=== PATIENT | female | born 1965 | race Caucasian/White ===

== ENCOUNTER 2016-11-24 09:21 | Observation (INO) ==
[2016-11-24] MEDS ORDERED: 0.9 % Sodium Chloride 1,000 ML IVC ONE (09:35)
[2016-11-24] MEDS ORDERED: Pantoprazole 40 MG VIAL IVP ONE (09:35)
[2016-11-24] MEDS ORDERED: Ondansetron 4 MG/2 ML VIAL IVP ONE (09:35)
--- NOTE | 2016-11-24 09:38 | Emergency Department Note ---
Disposition Clinical Impression: Abdominal pain Qualifiers: Abdominal location: epigastric Qualified Code(s): R10.13 - Epigastric pain Nausea & vomiting Qualifiers: Vomiting type: unspecified Vomiting Intractability: unspecified Qualified Code( s): R11.2 - Nausea with vomiting, unspecified Chest pain Qualifiers: Chest pain type: unspecified Qualified Code(s): R07.9 - Chest pain, unspecified Disposition: Admitted As Inpatient Condition: Good Time of Disposition: 11:59 Abdominal Pain HPI - General Chief Complaint: ED Abdominal Pain Stated Complaint: Epigastric pain,vomiting Time Seen by Provider: 11/24/16 09:32 Source: patient Mode of arrival: ambulatory Limitations: no limitations Nursing Notes Reviewed: Yes Vital Signs Reviewed: Yes - History of Present Illness HPI Narrative: 51-year-old comes in with burning epigastric pain. Patient states that it is her reflux. She was on a PPI and that was stopped by her and her symptoms have returned. She states the symptoms are exactly that of her reflux. Patient states she cannot eat or drink anything. Pt Subjective Complaint: abdominal pain Onset (ago): day(s) Consistency: constant Location: epigastric Pain Scale: 8 Quality: burning Radiation: none Migration to: no migration Improves with: nothing Worsens with: nothing Associated symptoms: Reports: nausea, vomiting Treatments prior to arrival: none - Related Data Home Medications Medication Instructions Recorded Confirmed No Known Home Drugs 11/24/16 11/24/16 Allergies Allergy/AdvReac Type Severity Reaction Status Date / Time pregabalin [From Lyrica] Allergy Anaphylaxis Verified 11/24/16 09:24 All systems ED: reviewed and negative except as stated. Constitutional: Denies: fever, chills, weakness, weight change Eyes: Denies: eye pain, eye discharge, vision change ENT ED: Denies: ear pain, throat pain, dental pain, hearing loss, epistaxis, congestion, dysphagia Cardiovascular: Denies: chest pain, palpitations, dyspnea on exertion, edema, syncope Respiratory: Denies: cough, dyspnea, wheezes, hemoptysis, stridor Gastrointestinal: Reports: abdominal pain. Denies: nausea, vomiting, diarrhea, constipation, hematemesis, melena, hematochezia Genitourinary: Denies: dysuria, frequency, hematuria, discharge Musculoskeletal: Denies: back pain, neck pain, arthralgia, myalgia Integumentary: Denies: rash, abrasion, lesions Neurological: Denies: headache, weakness, numbness, paresthesias, confusion, abnormal gait, vertigo Psychiatric: Denies: anxiety, depression, suicidal thoughts, homicidal thoughts , auditory hallucinations, visual hallucinations Endocrine: Denies: fatigue Hematological/Lymphatic: Denies: easy bleeding, easy bruising Allergic/Immunologic: Denies: facial swelling, urticaria Abdominal Pain PMH - Past Medical History Medical history: Reports: cancer, fibromyalgia, GERD, other Female Surgical History: Reports: cancer surgery CONTACT LENS ASSISTANT history: Reports: bilateral tubal ligation Psychiatric history: Reports: anxiety - Social History Smoking status: Never smoker Alcohol use: Reports: none Drug use: Reports: none Physical Exam - General Limitations: no limitations General appearance: alert, in no apparent distress - Head Head exam: atraumatic, normocephalic, normal inspection - Eye Eye exam: Present: normal appearance, PERRL, EOMI - ENT ENT exam: normal exam, normal oropharynx, mucous membranes moist - Neck Neck exam: Present: normal inspection, full ROM, trachea midline - Chest Chest inspection: Present: normal inspection, symmetric chest wall rise - Respiratory Respiratory exam: Present: normal lung sounds bilaterally - Cardiovascular Cardiovascular exam: Present: regular rate, normal rhythm, normal heart sounds - Abdominal Exam Abdominal exam: Present: tenderness Abdominal tenderness: Present: epigastrium - Extremities Exam Extremities exam: Present: normal inspection, full ROM. Absent: tenderness, pedal edema - Expanded Lower Extremity Exam Neurovascular/Tendon exam: Absent: motor deficit, sensory deficit, tendon deficit Gait: observed and normal - Back Exam Back exam: Present: normal inspection, full ROM. Absent: tenderness - Neurological Exam Neurological exam: Present: alert, oriented X3 - Psychiatric Psychiatric exam: Present: normal affect, normal mood - Skin Skin exam: Present: warm, dry, intact, normal color Course - Reevaluation(s) Reevaluation #1: 51-year-old with history of known reflux has not been on medicine comes in with epigastric pain into her chest. States she's not able to eat or drink anything not able to keep anything down. EKG shows no acute changes initial troponin was negative. Patient will be admitted she continues to have symptoms after treatment. Time: 12:00 - Consultations Consultation #1: Discussed with Dr.Pam, admit. Time: 12:00 Vital Signs Temperature 97.5 F L 11/24/16 09:23 Pulse Rate 80 11/24/16 09:23 Respiratory Rate 16 11/24/16 09:23 Blood Pressure 149/106 11/24/16 09:23 O2 Sat by Pulse Oximetry 98 11/24/16 09:23 Temperature 98.1 F 11/24/16 18:32 Pulse Rate 56 11/24/16 18:32 Respiratory Rate 18 11/24/16 18:32 Blood Pressure 128/77 11/24/16 18:32 O2 Sat by Pulse Oximetry 96 11/24/16 18:32 Oxygen Delivery Oxygen Delivery Room Air Abdominal Pain - Lab Data Lab results reviewed: Yes I reviewed the patient's lab results. Result diagrams: 11/24/16 09:47 11/24/16 09:47 Lab Results 11/24/16 11/24/16 11/24/16 Range/Units 09:47 09:47 09:47 WBC 7.6 (4.3-11.1) K/mcL RBC 4.85 (3.82-4.97) M/mcL Hgb 13.6 (11.5-15.4) g/dL Hct 41.8 (35.3-44.9) % MCV 86.2 (83.0-100.0) fL MCH 28.0 (28.0-33.3) pg MCHC 32.5 (31.6-35.5) g/dL RDW 13.2 (11.5-14.5) % Plt Count 245 (140-400) K/mcL MPV 9.9 (9.4-12.4) fL Immature Gran % 0.3 (0-4) % Seg Neutrophils % 76.3 % Lymphocytes % 17.3 % Monocytes % 4.9 % Eosinophils % 0.7 % Basophils % 0.5 % Neutrophils # 5.8 (1.6-8.9) K/mcL Lymphocytes # 1.3 (0.6-4.6) K/mcL Monocytes # 0.4 (0.0-1.3) K/mcL Eosinophils # 0.1 (0.0-0.6) K/mcL Basophils # 0.0 (0.0-0.2) K/mcL Sodium 142 (136-145) mEq/L Potassium 4.2 (3.5-4.5) mEq/L Chloride 109 (98-109) mEq/L Carbon Dioxide 27 (19-29) mEq/L BUN 10 (7-20) mg/dL Creatinine 0.76 (0.57-1.11) mg/dL Est GFR ( Amer) > 60 (> 60) Est GFR (Non-Af Amer) > 60 (> 60) BUN/Creatinine Ratio 13 (6-26) Glucose 102 H (70-99) mg/dL Calculated Osmolality 293 (280-300) Lactic Acid 0.6 (0.5-2.2) mmol/L Calcium 9.8 (8.6-10.8) mg/dL Total Bilirubin 0.7 (0.2-1.2) mg/dL Direct Bilirubin 0.3 (0.0-0.5) mg/dL Indirect Bilirubin 0.4 (0.0-1.2) mg/dL AST 12 (5-34) Units/L ALT 9 (0-55) Units/L Alkaline Phosphatase 97 (38-126) Units/L Troponin I (0-0.03) ng/mL Serum Total Protein 8.0 (6.0-8.3) g/dL Albumin 4.0 (3.5-5.0) g/dL Globulin 4.0 H (2.4-3.5) g/dL Albumin/Globulin Ratio 1.0 L (1.1-2.2) Amylase 55 (25-125) Units/L Lipase 23 (8-78) Units/L Urine Color (Yellow) Urine Clarity (Clear) Urine pH (5.0-8.0) pH Units Ur Specific Falcon (1.010-1.025) Urine Protein (Neg-Trace) mg/dL Urine Glucose (UA) (Normal) mg/dL Urine Ketones (Negative) mg/dL Urine Blood (Negative) Urine Nitrite (Negative) Urine Bilirubin (Negative) Urine Urobilinogen (Normal) mg/dL Ur Leukocyte Esterase (Negative) Urine Microscopic RBC Urine Microscopic WBC (0-3) per hpf Ur Squamous Epith Cells (None-Few) per lpf Urine Bacteria (None-Few) per hpf Hyaline Casts Urine Mucus (Few) Ur Culture Indicated? (NO) 11/24/16 11/24/16 Range/Units 09:47 10:00 WBC (4.3-11.1) K/mcL RBC (3.82-4.97) M/mcL Hgb (11.5-15.4) g/dL Hct (35.3-44.9) % MCV (83.0-100.0) fL MCH (28.0-33.3) pg MCHC (31.6-35.5) g/dL RDW (11.5-14.5) % Plt Count (140-400) K/mcL MPV (9.4-12.4) fL Immature Gran % (0-4) % Seg Neutrophils % % Lymphocytes % % Monocytes % % Eosinophils % % Basophils % % Neutrophils # (1.6-8.9) K/mcL Lymphocytes # (0.6-4.6) K/mcL Monocytes # (0.0-1.3) K/mcL Eosinophils # (0.0-0.6) K/mcL Basophils # (0.0-0.2) K/mcL Sodium (136-145) mEq/L Potassium (3.5-4.5) mEq/L Chloride (98-109) mEq/L Carbon Dioxide (19-29) mEq/L BUN (7-20) mg/dL Creatinine (0.57-1.11) mg/dL Est GFR ( Amer) (> 60) Est GFR (Non-Af Amer) (> 60) BUN/Creatinine Ratio (6-26) Glucose (70-99) mg/dL Calculated Osmolality (280-300) Lactic Acid (0.5-2.2) mmol/L Calcium (8.6-10.8) mg/dL Total Bilirubin (0.2-1.2) mg/dL Direct Bilirubin (0.0-0.5) mg/dL Indirect Bilirubin (0.0-1.2) mg/dL AST (5-34) Units/L ALT (0-55) Units/L Alkaline Phosphatase (38-126) Units/L Troponin I 0.00 (0-0.03) ng/mL Serum Total Protein (6.0-8.3) g/dL Albumin (3.5-5.0) g/dL Globulin (2.4-3.5) g/dL Albumin/Globulin Ratio (1.1-2.2) Amylase (25-125) Units/L Lipase (8-78) Units/L Urine Color Yellow (Yellow) Urine Clarity Slightly Hazy (Clear) Urine pH 6.0 (5.0-8.0) pH Units Ur Specific Falcon 1.028 H (1.010-1.025) Urine Protein Trace (Neg-Trace) mg/dL Urine Glucose (UA) Normal (Normal) mg/dL Urine Ketones 40 H (Negative) mg/dL Urine Blood Negative (Negative) Urine Nitrite Negative (Negative) Urine Bilirubin Negative (Negative) Urine Urobilinogen Normal (Normal) mg/dL Ur Leukocyte Esterase Negative (Negative) Urine Microscopic RBC Test Not Performed Urine Microscopic WBC 0-3 (0-3) per hpf Ur Squamous Epith Cells Many H (None-Few) per lpf Urine Bacteria Few (None-Few) per hpf Hyaline Casts Test Not Performed Urine Mucus Many H (Few) Ur Culture Indicated? NO (NO) - Radiology Data Radiology results reviewed: Yes I reviewed the patient's radiology results. Abdomen/Pelvis CT 11/24/16 09:36 IMPRESSION: 1. No acute intra-abdominal or intrapelvic process. 2. Benign hepatic cysts. 3. Small 6 mm right renal angiomyolipoma. 4. Small hiatal hernia. 5. Partially visualized 4 mm noncalcified nodule within the subpleural right middle lobe. Further follow-up of this nodule is as advised below. RECOMMENDATIONS: Fleischner Society guidelines for follow-up and management of incidentally detected pulmonary nodules: Single Solid Nodule: Nodule size less than 6 mm In a low-risk patient, no routine follow-up. In a high-risk patient, optional CT at 12 months. - Low risk patients include individuals with minimal or absent history of smoking and other known risk factors. - High risk patients include individuals with a history or smoking or known risk factors. Radiology 2017 http://pubs.rsna.org/doi/full/10.1148/radiol.[email or web address] D/ / 11/24/2016 10:36:41 Abhinav Norwood MD / [facility] Interpreting Provider: Abhinav Norwood MD - EKG Data EKG attestation: Yes I reviewed and interpreted this EKG. EKG shows normal: sinus rhythm Rate: bradycardia Rhythm: NSR Atkins/QRS: normal Interpretation: no acute changes
[2016-11-24 09:56] LABS: Basophils % 0.5 %; Eosinophils # 0.1 K/mcL (0.0-0.6); Eosinophils % 0.7 %; Hematocrit 41.8 % (35.3-44.9); Hemoglobin 13.6 g/dL (11.5-15.4); Immature Granulocytes % 0.3 % (0-4); Lymphocytes # 1.3 K/mcL (0.6-4.6); Lymphocytes % 17.3 %; Mean Corpuscular HGB Conc 32.5 g/dL (31.6-35.5); Mean Corpuscular Volume 86.2 fL (83.0-100.0); Mean Platelet Volume 9.9 fL (9.4-12.4); Monocytes # 0.4 K/mcL (0.0-1.3); Monocytes % 4.9 %; Neutrophils # 5.8 K/mcL (1.6-8.9); Platelet Count 245 K/mcL (140-400); Red Blood Count 4.85 M/mcL (3.82-4.97); Red Cell Distribution Width 13.2 % (11.5-14.5); Segmented Neutrophils % 76.3 %
[2016-11-24 10:11] LABS: Bilirubin,Urine Negative (Negative); Blood,Urine Negative (Negative); Color,Urine Yellow (Yellow); Glucose,Urine (UA) Normal (Normal); Ketones,Urine 40 mg/dL (Negative); Leukocyte Esterase,Urine Negative (Negative); Nitrite,Urine Negative (Negative); Protein,Urine Trace mg/dL (Neg-Trace); Specific Gravity,Urine 1.028 (1.010-1.025); Urobilinogen,Urine Normal (Normal)
[2016-11-24 10:13] LABS: Alanine Aminotransferase 9 Units/L (0-55); Alkaline Phosphatase 97 Units/L (38-126); Amylase 55 Units/L (25-125); Aspartate Amino Transferase 12 Units/L (5-34); BUN/Creatinine Ratio 13 (6-26); Bilirubin,Direct 0.3 mg/dL (0.0-0.5); Bilirubin,Indirect 0.4 mg/dL (0.0-1.2); Bilirubin,Total 0.7 mg/dL (0.2-1.2); Blood Urea Nitrogen 10 mg/dL (7-20); Calcium 9.8 mg/dL (8.6-10.8); Carbon Dioxide 27 mEq/L (19-29); Chloride 109 mEq/L (98-109); Glucose 102 mg/dL (70-99); Lipase 23 Units/L (8-78); Osmolality,Calculated 293 (280-300); Potassium 4.2 mEq/L (3.5-4.5); Sodium 142 mEq/L (136-145); eGFR For African Americans > 60 (> 60); eGFR For Non-African Americans > 60 (> 60)
[2016-11-24 10:31] LABS: Clarity,Urine Slightly Hazy (Clear)
[2016-11-24 10:57] LABS: Mucus,Urine Many (Few); Squamous Epithelial Cell,Urine Many per lpf (None-Few)
[2016-11-24 10:58] LABS: Bacteria,Urine Few per hpf (None-Few); WBC,Urine 0-3 per hpf (0-3)
--- NOTE | 2016-11-24 12:55 | Internal Med History&Physical ---
<Blanca Johansen - Last Filed: 11/24/16 17:01> Date of Encounter: 11/24/16 Time of Encounter: 12:56 Assessment and Plan (1) Chest pain, rule out acute myocardial infarction Current visit: Yes Status: Acute patient describes as typical chest pain. initial troponin negative EKG showed sinus bradycardia without any acute ST changes. KENDALL score: 1 chest pain reproduced upon exam. At this time, suspicion for cardiac chest pain is low. could be related to hiatal hernia, gastric ulcer, or esophageal motility disorder. patient does have history of gastric ulcer, and had barium studies done in the past at outside institutions, and states she has had multiple esophageal dilations done in the past as well. Plan: ASA, stain, BB check lipid panel in am CXR pending continue omeprazole if troponins remain negative, consider outpatient stress testing. stool occult blood pending, possible bleeding ulcer NPO after midnight for possible EGD tomorrow- needs GI consult. (2) Nausea & vomiting Current visit: Yes Status: Acute etiology unclear at this time possibilities include bleeding ulcer, ACS, viral gastroenteritis Plan: continue zofran/phenergan PRN Qualifiers: Vomiting type: unspecified Vomiting Intractability: unspecified Qualified Code(s): R11.2 - Nausea with vomiting, unspecified (3) GERD (gastroesophageal reflux disease) Current visit: Yes Status: Acute start omeprazole. Qualifiers: Esophagitis presence: esophagitis presence not specified Qualified Code(s) : K21.9 - Gastro-esophageal reflux disease without esophagitis (4) Chronic back pain Current visit: Yes Status: Acute continue home pain medication. Qualifiers: Back pain location: low back pain Back pain laterality: unspecified Sciatica presence: with sciatica Sciatica laterality: sciatica laterality unspecified Qualified Code(s): M54.40 - Lumbago with sciatica, unspecified side; G89.29 - Other chronic pain (5) History of gastric ulcer Current visit: Yes Status: Acute patient states she used to be on PPI, but stopped taking it because she "felt better" start omeprazole. (6) DVT prophylaxis Current visit: Yes Status: Acute heparin SQ Internal Medicine - H&P: HPI Chief complaint: chest pain Admitted From: Emergency Dept Plans for Post Hospital Care: Home History of present illness: Ms. 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 She states the only medication she takes at home is percocet as needed for her chronic back pain. she used to be on anti ulcer medication many years ago, but has stopped this because she felt better and did not feel as if she needed it anymore. Patient arrived to [facility] today with chief complaint of chest pain. she states that starting last night, she had nausea and vomiting after taking a bite of teriyaki sauce and rice. she states this was not spicy. she denies any sick contacts. she has been vomiting constantly ever since. her vomit is white in color and she does not recall any blood in her vomit. she describes her chest pain as a dull ache, and rates it 10/10. she says the location is left substernal area of her chest and the pain does not radiate, but pain is also reproducible with chest pressure. she denies any recent injuries to her chest. Her chest pain comes and goes, is worse with activity, and is better with rest. she currently reports 10/10 chest pain, and states her pain is not associated with food or eating. she does sometimes have pain with swallowing. she had a barium swallow about 5-6 years ago at an [facility] facility, and states she had to have her esophagus "stretched" about four times in the past. she does admit to diaphoresis as well. she also admits to bright red blood in her stool that has happened about 5-6 times. her last colonoscopy was last year and she had polyps removed. she denies hematuria, admits to shortness of breath. she does not smoke and has no smoking history. she does admit to pain with swallowing. Past Med Surg Social Fam HX - Past Medical History Medical history: cancer, fibromyalgia, GERD, other Psychiatric history: anxiety - Social History Smoking Status: Never smoker Smokeless Tobacco Status: No Alcohol use: none Drug use: none - Family History Father Hx Family Cardiac Disorders: No Hx Family GI Disorders: Yes (harley) Mother Hx Family Cardiac Disorders: Yes (MD) Internal Medicine - H&P: Meds No Known Home Drugs 11/24/16 [History] 3 Allergy/AdvReac Type Severity Reaction Status Date / Time pregabalin [From Lyrica] Allergy Anaphylaxis Verified 11/24/16 09:24 All Systems PM: A 10-system review of systems was performed and is negative for pertinent findings except as documented above in the HPI. - Constitutional Constitutional: as per HPI - EENT Eyes: as per HPI Ears: as per HPI Nose, mouth and throat: as per HPI - Breasts Breasts: as per HPI - Cardiovascular Cardiovascular ROS IM: as per HPI - Respiratory Respiratory: as per HPI - Gastrointestinal Gastrointestinal: as per HPI - Genitourinary Genitourinary: as per HPI Menstruation: as per HPI - Musculoskeletal Musculoskeletal ROS IM: as per HPI - Integumentary Integumentary IM: as per HPI - Neurological Neurological ROS: as per HPI - Psychiatric Psychiatric: as per HPI - Endocrine Endocrine IM: as per HPI - Hematologic/Lymphatic Hematologic/Lymphatic: as per HPI - Allergic/Immunologic Allergic/Immunologic: as per HPI - Constitutional Vitals: Temp Pulse Resp BP Pulse Ox 97.9 F 43 16 146/85 100 11/24/16 12:52 11/24/16 12:52 11/24/16 12:52 11/24/16 12:52 11/24/16 12:52 General appearance: Present: mild distress, A&O X 3, pleasant, answers questions appropriately - Head Head exam: Present: atraumatic, normocephalic - Neck Neck exam general surgery: Present: supple, trachea midline - Respiratory Respiratory exam: Present: CTAB - Cardiovascular Cardiovascular exam: Present: RRR, +S1, +S2 - GI/Abdominal GI/Abdominal exam: Present: soft, tenderness (mild epigastric tenderness to palpation. ). Absent: distended - Extremities Exam Extremities exam: Absent: cyanotic, pedal edema - Neurological Exam Neurological exam: Present: alert, oriented X3, no focal deficits - Psychiatric Psychiatric exam: Present: normal affect, normal mood - Skin Skin exam: Present: intact Internal Med - H&P Results - Labs CBC & Chem 7: 11/24/16 09:47 11/24/16 09:47 <Baljinder Orozco P - Last Filed: 11/24/16 18:16> Date of Encounter: 11/24/16 Internal Medicine - H&P: [facility] History of present illness: Ms. Mckinney is a 51 year old female All Systems PM: A 10-system review of systems was performed and is negative for pertinent findings except as documented above in the HPI. - Constitutional Vitals: Temp Pulse Resp BP Pulse Ox 98.0 F 59 16 163/91 100 11/24/16 15:54 11/24/16 15:54 11/24/16 15:54 11/24/16 15:54 11/24/16 15:54 Internal Med - H&P Results - Labs CBC & Chem 7: 11/24/16 09:47 11/24/16 09:47 - Attending Attestation I examined this patient and my medical decision-making was reviewed with the Resident Physician. I agree with the documented findings, disposition and treatment plan as described except to the extent set forth below. Persistent GERD in spite of taking PPI for more than 2 years. She needs inpatient GI consult for possible inpatient endoscopy. Please trend her troponin.
[2016-11-24] MEDS: Ondansetron 4 MG/2 ML VIAL IVP PRN ×2 (13:42→20:43)
[2016-11-24] MEDS: Aspirin 81 MG TAB.CHEW PO SCH (13:44)
[2016-11-24] MEDS ORDERED: Acetaminophen 325 MG TABLET PO PRN (15:37)
[2016-11-24] MEDS ORDERED: Naloxone 0.4 MG/ML INJ IVP PRN (15:39)
[2016-11-24] MEDS: *HR* Promethazine 25 MG/ML VIAL IVP PRN (16:02)
[2016-11-24] MEDS: *HR* Heparin 5,000 UNIT/ML VIAL SQ SCH (16:14)
[2016-11-25] MEDS: *HR* Promethazine 25 MG/ML VIAL IVP PRN (00:38)
[2016-11-25] MEDS: Sucralfate 1 GM TABLET PO SCH ×5 (00:38→22:02)
[2016-11-25 04:55] LABS: Basophils % 0.5 %; Eosinophils # 0.2 K/mcL (0.0-0.6); Eosinophils % 2.3 %; Hematocrit 40.2 % (35.3-44.9); Immature Granulocytes % 0.3 % (0-4); Lymphocytes # 1.9 K/mcL (0.6-4.6); Lymphocytes % 26.2 %; Mean Corpuscular HGB Conc 32.3 g/dL (31.6-35.5); Mean Corpuscular Hemoglobin 28.1 pg (28.0-33.3); Mean Platelet Volume 10.7 fL (9.4-12.4); Monocytes # 0.6 K/mcL (0.0-1.3); Monocytes % 7.6 %; Neutrophils # 4.6 K/mcL (1.6-8.9); Platelet Count 236 K/mcL (140-400); Red Blood Count 4.62 M/mcL (3.82-4.97); Red Cell Distribution Width 13.2 % (11.5-14.5); Segmented Neutrophils % 63.1 %
[2016-11-25 05:01] LABS: Chol/HDL Ratio 3.3 (0-4.9)
[2016-11-25 05:06] LABS: BUN/Creatinine Ratio 13 (6-26); Blood Urea Nitrogen 9 mg/dL (7-20); Calcium 9.4 mg/dL (8.6-10.8); Carbon Dioxide 23 mEq/L (19-29); Chloride 109 mEq/L (98-109); Glucose 83 mg/dL (70-99); Osmolality,Calculated 290 (280-300); Potassium 3.6 mEq/L (3.5-4.5); Sodium 141 mEq/L (136-145); eGFR For African Americans > 60 (> 60); eGFR For Non-African Americans > 60 (> 60)
[2016-11-25] MEDS: *HR* Heparin 5,000 UNIT/ML VIAL SQ SCH ×2 (05:24→18:27)
--- NOTE | 2016-11-25 07:18 | Electrocardiograph Report ---
[facility] Test Date: 2016-11-24 Pat Name: Julianne Mckinney Department: 0 Room: 3B43 Gender: F Financial Operations Analyst: : 1965 Requested By: Jaun Valdivia Order Number: [id number] Reading MD: Zohaib Morfin MD Measurements Intervals [place] Rate: 56 P: 31 VT: 137 QRS: -2 QRSD: 85 T: 10 QT: 401 QTc: 393 Interpretive Statements SINUS BRADYCARDIA Electronically Signed On 11-25-2016 7:16:17 EDT by Zoahib Morfin MD
[2016-11-25] MEDS ORDERED: Sucralfate 1 GM TABLET PO SCH (07:30)
[2016-11-25] MEDS: Aspirin 81 MG TAB.CHEW PO SCH (08:45)
[2016-11-25] MEDS: D5% in 0.45% NACL 1,000 ML IVC SCH ×2 (11:04→19:57)
--- NOTE | 2016-11-25 11:37 | Gastroenterology Consult Note ---
<Bakari Montoya Iqra - Last Filed: 11/25/16 11:34> Date of Encounter: 11/25/16 Time of Encounter: 11:00 - Assessment and plan (1) Epigastric pain Current Visit: Yes Status: Acute Assessment and plan: Likely secondary to GERD, continue PPI. (2) Dysphagia Current Visit: Yes Status: Acute Assessment and plan: Plan for EGD today with possible dilation. Keep NPO. Qualifiers: Dysphagia type: unspecified Qualified Code(s): R13.10 - Dysphagia, unspecified (3) GERD (gastroesophageal reflux disease) Current Visit: Yes Status: Acute Assessment and plan: Continue PPI. Use PPI half hour before breakfast or evening meal. Lifestyle modifications include: 1) Elevate the head of the bed on 4"-6" blocks. 2) Exercise/Weight loss 3) Decrease the size of portions at mealtimes. 4) Avoid wearing tight clothing. 5) Avoid recumbency for 3 hours after meals. 6) Avoid bedtime snacks. 7) Avoid fried or fatty foods, chocolate, peppermint, onions, garlic, coffee ( including decaf), carbonated beverages, ketchup/mustards, vinegar, tomato sauce , citrus fruits/juices. 8) Avoid cigarettes and alcohol. 9) Avoid aspirin, anti-inflammatory pain medications other than acetaminophen. Qualifiers: Esophagitis presence: esophagitis presence not specified Qualified Code(s) : K21.9 - Gastro-esophageal reflux disease without esophagitis (4) History of gastric ulcer Current Visit: Yes Status: Acute - Time Spent With Patient Total time spent is greater than 50% in coordination of care (as documented) at patient's floor/unit and/or counseling patient: GI History of Present Illness - Data of Consult Patient: new to practice Consult date: 11/25/16 Requesting Physician: Kayla Baker - Consult Narrative Reason for consult: dysphagia History of present illness: Ms. Mckinney is a 51 year old female with PMHx of GERD, hiatal hernia, fibromyalgia, CVA 2007, gastric ulcer, and multiple esophageal dilations. Pt presented to the ED with complaints of chest pain that started the night before admission. She reports nausea and vomiting as well. She reports pain with swallowing. She had a barium swallow study about 5-6 years ago at an ouside facility, and states she had to have her esophagus "stretched" about four times in the past. She used to be on omeprazole, but has stopped 2 years ago because symptoms had resolved. Over the past year, stress in her life has increased and her reflux has worsened. Procedures: EGD 5-6 years ago, [place], [place], esophageal dilation (per pt report) . Colonoscopy 2-3 years ago, few polyps removed, recommended repeat 5 years (per pt report). NSAIDs: None Anticoagulation: None Past Med Surg Social Fam HX - Past Medical History Medical history: cancer, fibromyalgia, GERD, other Psychiatric history: anxiety - Past Surgical History Surgical History: other - Social History Smoking Status: Never smoker Smokeless Tobacco Status: No Alcohol use: none Drug use: none - Family History Father Hx Family Cardiac Disorders: No Hx Family GI Disorders: Yes ([place]) Mother Hx Family Cardiac Disorders: Yes ([place]) - Gastrointestinal Gastrointestinal: Present: as per HPI - Constitutional Constitutional: as per HPI - EENT Eyes: as per HPI Ears: Present: as per HPI Nose, mouth and throat: Present: as per HPI - Cardiovascular Cardiovascular ROS: Present: as per HPI - Respiratory Respiratory IM: Present: as per HPI - Genitourinary Genitourinary: Absent: change in color, Urinary frequency - Neurological ROS Neurological GI: Present: as per HPI - Hematologic/Lymphatic Hematologic/Lymphatic pediatric: Present: as per HPI - Musculoskeletal Musculoskeletal ROS GI: Present: as per HPI - Integumentary Integumentary GI: Present: as per HPI - Psychiatric ROS Psychiatric GI: Present: as per HPI - Endocrine Endocrine IM: Present: as per HPI - Constitutional Vitals: Temp Pulse Resp BP Pulse Ox 98.0 F 77 18 133/84 92 11/25/16 07:33 11/25/16 07:33 11/25/16 07:33 11/25/16 07:33 11/25/16 07:33 General appearance: Present: cooperative, A&O X 3, no acute distress, answers questions appropriately - Head Head exam: Present: atraumatic, normocephalic - Eye Eye exam: Present: normal appearance, sclera anicteric - ENT ENT exam: Present: mucous membranes dry - Neck Neck exam general surgery: Present: normal inspection, trachea midline - Respiratory Respiratory exam: Present: CTAB. Absent: rales, rhonchi - Cardiovascular Cardiovascular exam: Present: RRR, +S1, +S2 - GI/Abdominal GI/Abdominal exam: Present: soft, tenderness (epigastric), no peritoneal signs. Absent: distended, firm, guarding - Rectal Rectal exam: Present: deferred - Extremities Exam Extremities exam: Present: warm - Neurological Exam Neurological exam: Present: no focal deficits - Psychiatric Psychiatric exam: Present: normal affect, normal mood - Skin Skin exam: Present: dry, intact, normal color, warm Results - Labs CBC & Chem 7: 11/25/16 00:50 11/25/16 00:50 Labs: Last Result Calcium 9.4 mg/dL (8.6-10.8) 11/25/16 00:50 Troponin I 0.01 ng/mL (0-0.03) 11/25/16 00:50 Triglycerides 67 mg/dL (< 150) 11/25/16 00:50 Entire Visit Hgb 13.0 g/dL (11.5-15.4) 11/25/16 00:50 Hct 40.2 % (35.3-44.9) 11/25/16 00:50 Total Bilirubin 0.7 mg/dL (0.2-1.2) 11/24/16 09:47 AST 12 Units/L (5-34) 11/24/16 09:47 ALT 9 Units/L (0-55) 11/24/16 09:47 Amylase 55 Units/L (25-125) 11/24/16 09:47 Lipase 23 Units/L (8-78) 11/24/16 09:47 - Impressions Impressions Chest X-Ray 11/24/16 15:35 IMPRESSION: No acute cardiopulmonary process. D/ / 11/24/2016 18:28:13 Liz Pike MD / [email or web address] Interpreting Provider: Liz Pike MD Consult Discharge Plan - Plan Referrals: Martinez No MD [Primary Care Provider] - <Lakshmi Duncan - Last Filed: 11/25/16 17:37> Date of Encounter: 11/25/16 Time of Encounter: 17:00 - Time Spent With Patient Total time spent is greater than 50% in coordination of care (as documented) at patient's floor/unit and/or counseling patient: GI History of Present Illness - Data of Consult Requesting Physician: Kayla Baker - Consult Narrative History of present illness: Ms. Mckinney is a 51 year old female - Constitutional Vitals: Temp Pulse Resp BP Pulse Ox 98.1 F 69 18 180/105 100 11/25/16 14:55 11/25/16 17:35 11/25/16 17:35 11/25/16 17:35 11/25/16 17:35 Results - Labs CBC & Chem 7: 11/25/16 00:50 11/25/16 00:50 Labs: Last Result Calcium 9.4 mg/dL (8.6-10.8) 11/25/16 00:50 Troponin I 0.01 ng/mL (0-0.03) 11/25/16 00:50 Triglycerides 67 mg/dL (< 150) 11/25/16 00:50 Entire Visit Hgb 13.0 g/dL (11.5-15.4) 11/25/16 00:50 Hct 40.2 % (35.3-44.9) 11/25/16 00:50 Total Bilirubin 0.7 mg/dL (0.2-1.2) 11/24/16 09:47 AST 12 Units/L (5-34) 11/24/16 09:47 ALT 9 Units/L (0-55) 11/24/16 09:47 Amylase 55 Units/L (25-125) 11/24/16 09:47 Lipase 23 Units/L (8-78) 11/24/16 09:47 - Impressions Impressions Chest X-Ray 11/24/16 15:35 IMPRESSION: No acute cardiopulmonary process. D/ / 11/24/2016 18:28:13 Liz Pike MD / lgray Interpreting Provider: Liz Pike MD - Attending Attestation I examined this patient and my medical decision-making was reviewed with the Resident Physician. I agree with the documented findings, disposition and treatment plan as described except to the extent set forth below. Dysphgia with spitting symptoms are concerning for possible obstruction at GE junction with food impaction.
--- NOTE | 2016-11-25 15:02 | Internal Med Progress Note ---
Date of Encounter: 11/25/16 Time of Encounter: 11:00 - Assessment and plan (1) Chest pain Current Visit: Yes Status: Acute Assessment and plan: Atypical CP So far negative troponin No EKG changes No further work up needed cont ASA, BB and statin Qualifiers: Chest pain type: unspecified Qualified Code(s): R07.9 - Chest pain, unspecified (2) Abdominal pain Current Visit: Yes Status: Acute Assessment and plan: Could de due to gastric ulcer / Peptic ulcer Does need EGD for further eval due to her dysphagia spoke to GI Dr. Duncan who is planning on doing EGD later today cont NPO for now started her on IVF Cont PPI Qualifiers: Abdominal location: epigastric Qualified Code(s): R10.13 - Epigastric pain (3) Nausea & vomiting Current Visit: Yes Status: Acute Assessment and plan: improved on Zofran PRN Qualifiers: Vomiting type: unspecified Vomiting Intractability: unspecified Qualified Code(s): R11.2 - Nausea with vomiting, unspecified (4) Dysphagia Current Visit: Yes Status: Acute Assessment and plan: scheduled for EGD today Qualifiers: Dysphagia type: unspecified Qualified Code(s): R13.10 - Dysphagia, unspecified (5) GERD (gastroesophageal reflux disease) Current Visit: Yes Status: Acute Assessment and plan: on PPI Qualifiers: Esophagitis presence: esophagitis presence not specified Qualified Code(s) : K21.9 - Gastro-esophageal reflux disease without esophagitis (6) Chronic back pain Current Visit: Yes Status: Chronic Assessment and plan: Cont pain meds PRN Qualifiers: Back pain location: low back pain Back pain laterality: unspecified Sciatica presence: with sciatica Sciatica laterality: sciatica laterality unspecified Qualified Code(s): M54.40 - Lumbago with sciatica, unspecified side; G89.29 - Other chronic pain (7) DVT prophylaxis Current Visit: Yes Status: Acute - Subjective Interval history: Ms. Mckinney is a 51 year old female with PMHx of GERD, hiatal hernia, fibromyalgia, degenerative disc disease, CVA in 2007 , history of gastric ulcer , history of multiple esophageal dilations. She states the only medication she takes at home is percocet as needed for her chronic back pain. she used to be on anti ulcer medication many years ago, but has stopped this because she felt better and did not feel as if she needed it anymore. Pt presented to ER y/d c/o epigastric discomfort from last 3 days, with dysphagia unable to swallow even liquids. She also c/o nausea and vomiting all day y/d. Denied any CP / SOB - Constitutional Vitals: Temp Pulse Resp BP Pulse Ox 98 F 52 16 135/80 98 11/25/16 11:50 11/25/16 11:50 11/25/16 11:50 11/25/16 11:50 11/25/16 11:50 General appearance: Present: A&O X 3 (pale and lethargic), pleasant, answers questions appropriately - Head Head exam: Present: atraumatic, normal inspection - Respiratory Respiratory exam: Present: CTAB. Absent: accessory muscle use, rales, rhonchi, wheezes - Cardiovascular Cardiovascular exam: Present: RRR, +S1, +S2. Absent: diastolic murmur, gallop, rubs, systolic murmur - GI/Abdominal GI/Abdominal exam: Present: normal bowel sounds, soft. Absent: rebound, rigid, tenderness - Extremities Exam Extremities exam: Absent: calf tenderness, pedal edema, tenderness - Psychiatric Psychiatric exam: Present: normal affect, normal mood Internal Medicine: Result - Labs CBC & Chem 7: 11/25/16 00:50 11/25/16 00:50 Labs: Short CBC 11/25/16 Range/Units 00:50 WBC 7.3 (4.3-11.1) K/mcL Hgb 13.0 (11.5-15.4) g/dL Hct 40.2 (35.3-44.9) % Plt Count 236 (140-400) K/mcL Neutrophils # 4.6 (1.6-8.9) K/mcL BMP 11/25/16 00:50 Sodium 141 Potassium 3.6 Chloride 109 Carbon Dioxide 23 BUN 9 Creatinine 0.72 Glucose 83 Calcium 9.4 Cardiac Enzymes 11/24/16 11/25/16 Range/Units 18:06 00:50 Troponin I 0.01 0.01 (0-0.03) ng/mL - Impressions Impressions Chest X-Ray 11/24/16 15:35 IMPRESSION: No acute cardiopulmonary process. D/ / 11/24/2016 18:28:13 Liz Pike MD / lgray Interpreting Provider: Liz Pike MD - VTE Documentation of Mechanical Device: Intermittent pneumatic compression device Consult Discharge Plan - Plan Referrals: Martinez No MD [Primary Care Provider] -
[2016-11-25] MEDS ORDERED: *HR* Midazolam HCl 5 MG/5 ML VIAL IVP ONE (16:26)
[2016-11-25] MEDS ORDERED: *HR* FentaNYL (PF) 100 MCG/2 ML VIAL ONE (16:27)
[2016-11-25] MEDS ORDERED: Simethicone 40 MG/0.6 ML MLS IR ONE (17:35)
[2016-11-25] MEDS ORDERED: Tetracaine/Benzocaine/Butamben 200MG/SPRAY (100SPY/BOT) MM ONE (17:35)
[2016-11-25] MEDS: *HR* FentaNYL (PF) 100 MCG/2 ML VIAL IVP PRN ×3 (17:35→17:38)
[2016-11-25] MEDS: *HR* Midazolam HCl 5 MG/5 ML VIAL IVP PRN ×2 (17:36→17:38)
--- NOTE | 2016-11-25 17:36 | Pre-Sedation Evaluation ---
Pre-sedation evaluation - Pre-sedation checklist Date of procedure: 11/25/16 Recent Vitals: Last Vital Signs Temp 98.1 F 11/25/16 14:55 Pulse 69 11/25/16 17:35 Resp 18 11/25/16 17:35 BP 180/105 11/25/16 17:35 Pulse Ox 100 11/25/16 17:35 ASA Classification *see protocol: CLASS II-Mild systemic disease Plan of Care: Pt appropriate candidate for procedure/moderate/conscious sedation , Risks/benefits of procedure/sedation discussed w/ patient/family
[2016-11-25] MEDS: Pantoprazole 40 MG VIAL IVP SCH ×2 (18:28)
[2016-11-26] MEDS: D5% in 0.45% NACL 1,000 ML IVC SCH (03:57)
[2016-11-26] MEDS: *HR* Heparin 5,000 UNIT/ML VIAL SQ SCH (06:00)
[2016-11-26] MEDS: Pantoprazole 40 MG VIAL IVP SCH (06:00)
[2016-11-26] MEDS: Sucralfate 1 GM TABLET PO SCH ×2 (08:37→11:45)
[2016-11-26] MEDS: Aspirin 81 MG TAB.CHEW PO SCH (08:37)
[2016-11-26 11:52] VITALS: BP 118/78
--- NOTE | 2016-11-26 13:41 | Discharge Summary ---
Date of Encounter: 11/26/16 Time of Encounter: 13:00 - Discharge Diagnosis (1) Chest pain Priority: Primary Status: Acute Qualifiers: Chest pain type: unspecified Qualified Code(s): R07.9 - Chest pain, unspecified (2) Abdominal pain Priority: Primary Status: Acute Qualifiers: Abdominal location: epigastric Qualified Code(s): R10.13 - Epigastric pain (3) Dysphagia Priority: Primary Status: Acute Qualifiers: Dysphagia type: unspecified Qualified Code(s): R13.10 - Dysphagia, unspecified (4) Nausea & vomiting Priority: Secondary Status: Acute Qualifiers: Vomiting type: unspecified Vomiting Intractability: unspecified Qualified Code(s): R11.2 - Nausea with vomiting, unspecified (5) GERD (gastroesophageal reflux disease) Priority: Secondary Status: Acute Qualifiers: Esophagitis presence: esophagitis presence not specified Qualified Code(s) : K21.9 - Gastro-esophageal reflux disease without esophagitis (6) Chronic back pain Priority: Secondary Status: Chronic Qualifiers: Back pain location: low back pain Back pain laterality: unspecified Sciatica presence: with sciatica Sciatica laterality: sciatica laterality unspecified Qualified Code(s): M54.40 - Lumbago with sciatica, unspecified side; G89.29 - Other chronic pain - Discharge Medications Prescriptions: Omeprazole [PriLOSEC] 40 mg PO DAILY #30 cap Sucralfate [Carafate] 1 gm PO QIDAC 15 Days Home Medications: Aspirin 81 mg PO DAILY 11/26/16 [Rx] Omeprazole [PriLOSEC] 40 mg PO DAILY #30 cap 11/26/16 [Rx] Sucralfate [Carafate] 1 gm PO QIDAC 15 Days 11/26/16 [Rx] Allergies/Adverse Reactions: 3 Allergy/AdvReac Type Severity Reaction Status Date / Time pregabalin [From Lyrica] Allergy Anaphylaxis Verified 11/24/16 09:24 Date of admission: 11/24/16 12:21 Primary care physician: Martinez No, - Patient Status Disposition: Home, Self-Care Condition: Good - Discharge Instructions Follow Up With: Martinez No MD [Primary Care Provider] - - Diet and Activity Activity: increase activity as tolerated Diet: other (soft diet) Hospital course: Ms. Mckinney is a 51 year old female with PMHx of GERD, hiatal hernia, fibromyalgia, degenerative disc disease, CVA in 2007 , history of gastric ulcer , history of multiple esophageal dilations. She states the only medication she takes at home is percocet as needed for her chronic back pain. she used to be on anti ulcer medication many years ago, but has stopped this because she felt better and did not feel as if she needed it anymore. Pt presented to ER y/d c/o epigastric discomfort from last 3 days, with dysphagia unable to swallow even liquids. Pt was admitted here and placed her on rn cardiac initially. Her CP seems to be due to severe dysphagia / esophagitis. So I consulted Gi for further eval. She did go for EGD and found to have a big undigested chunck of chicken meat which was removed. Also noticed esophagitis. So I started her on PO PPI and Carafate. GI recommend her to f/u with them in 8 weeks for repeat EGD. - Time Spent with Patient Total time spent providing and/or coordinating discharge services: - Constitutional Vitals: Temp Pulse Resp BP Pulse Ox 98.0 F 70 16 118/78 98 11/26/16 11:50 11/26/16 11:50 11/26/16 11:50 11/26/16 11:50 11/26/16 11:50 General appearance: Present: A&O X 3 (pale and lethargic), pleasant, answers questions appropriately - Head Head exam: Present: atraumatic, normal inspection - Respiratory Respiratory exam: Present: decreased breath sounds, wheezes. Absent: respiratory distress, rhonchi - Cardiovascular Cardiovascular exam: Present: RRR, +S1, +S2. Absent: systolic murmur - GI/Abdominal GI/Abdominal exam: Present: normal bowel sounds, soft. Absent: rebound, rigid, tenderness - Extremities Exam Extremities exam: Absent: calf tenderness, pedal edema, tenderness - Psychiatric Psychiatric exam: Present: normal affect, normal mood - VTE Documentation of Mechanical Device: Intermittent pneumatic compression device
== END 2016-11-26 14:14 | disposition home or self-care (01) ==
LOC: 3BNU 09:21 → EMEROO 09:21 → 3BNU 12:40
PROVIDERS: ADMIT Internal Medicine; ATTEND Nurse Practitioner Family